=== PATIENT | female | born 1970 | race Caucasian/White ===

== ENCOUNTER 2020-08-27 08:44 | Day surgery (SDC) | payer OTHER ==
[2020-08-27 09:20] LABS: #Lymphocytes 0.8 thou/uL (1.20-3.40); #Monocytes 0.9 thou/uL (0.11-0.59); #Neutrophils 14.3 thou/uL (1.40-6.50); %Lymphocytes 4.7 % (21.0-51.0); %Monocytes 5.4 % (0.0-10.0); %Neutrophils 89.8 % (42.0-75.0); Hemoglobin 14.4 g/dL (12.0-16.0); Mean Corpuscular HGB CONC 33.8 g/dL (32.0-36.0); Mean Corpuscular Hemoglobin 31.4 pg (27.0-31.0); Mean Platelet Volume 7.9 fL (7.4-10.4); Platelet Count 204 thou/uL (130-400); RBC Distribution Width 11.4 % (11.5-14.5)
[2020-08-27 09:37] LABS: Anion Gap 11 mmol/L (10-20); BUN (Urea Nitrogen) 12 mg/dL (7.0-18.7); Calc. Creatinine Clearance 0 mL/min (70-130); Calcium 9.3 mg/dL (7.8-10.44); Carbon Dioxide 26 mmol/L (22-29); Chloride 101 mmol/L (98-107); Glucose 134 mg/dL (70-105); Potassium 3.7 mmol/L (3.5-5.1); Sodium 134 mmol/L (136-145)
[2020-08-27] MEDS ORDERED: Morphine 4 MG/ML VIAL ONE ×2 (10:14→13:30)
[2020-08-27] MEDS ORDERED: Ondansetron PF 4 MG/2 ML Vial ONE ×3 (10:14→14:53)
[2020-08-27 10:15] LABS: Bacteria/HPF None Seen HPF (None Seen); Bilirubin Negative (Negative); Blood, Urine 1+ (Negative); Clarity Clear (Clear); Glucose, Urine (Dipstick) Normal (Negative); Ketone, Urine 10 mg/dL (Negative); Leukocyte 25 Leu/uL (Negative); Nitrite Negative (Negative); Pregnancy Test - Urine (BHCG) Negative (Negative); Pregu Control Background? CLEAR/WHITE (CLR/WHITE); Pregu Control Bar Appear? YES (CONTROL BAR); Protein, Urine (Dipstick) Negative (Neg-Trace); RBC/HPF 0-3 HPF (0-3); Specific Gravity 1.024 (1.002-1.036); Specific Gravity, Urine 1.024 (1.002-1.036); Squamous Epithelial 0-3 HPF (0-3); Urobilinogen Normal mg/dL (Less than 2); WBC/HPF 0-3 HPF (0-3); pH, Urine 5.5 (5.0-9.0)
[2020-08-27] MEDS ORDERED: Piperacillin/Tazobactam 3.375 GM VIAL ONE (11:33)
[2020-08-27] MEDS ORDERED: Iopamidol-370 76% 500 ML 1 ML ONE (11:49)
[2020-08-27] MEDS ORDERED: Bupivacaine 0.25% HCL 30 ML VIAL ONE (14:26)
[2020-08-27] MEDS ORDERED: Lidocaine 1% w/Epinephrine 1:100K 20 ML VIAL ONE (14:26)
[2020-08-27] MEDS ORDERED: Fentanyl 100 MCG/2 ML VIAL ONE (14:38)
[2020-08-27] MEDS ORDERED: Famotidine/PF 20 mg/2ml Vial ONE (14:38)
[2020-08-27] MEDS ORDERED: PROPOFOL 200 MG/20 ML VIAL ONE (14:53)
[2020-08-27] MEDS ORDERED: diphenhydrAMINE 50 MG/ML VIAL ONE (14:53)
[2020-08-27] MEDS ORDERED: Lidocaine 1% PF 5 ML VIAL ONE (14:53)
[2020-08-27] MEDS ORDERED: Glycopyrrolate 0.2 MG/ML 5 ML SYRINGE ONE (14:53)
[2020-08-27] MEDS ORDERED: Succinylcholine 200 MG/10 ml SYRINGE FS ONE (14:53)
[2020-08-27] MEDS ORDERED: Dexamethasone 20 MG/5 ML VIAL ONE (14:53)
[2020-08-27] MEDS ORDERED: Rocuronium Bromide 10 MG/ML (10ML VIAL) ONE (14:53)
[2020-08-27] MEDS ORDERED: PHENYLEPHRINE-NS 100 MCG/ML 10 ML SYRINGE ONE (14:53)
[2020-08-27] MEDS ORDERED: Ketorolac Tromethamine 30 MG/ML VIAL ONE (14:53)
[2020-08-27] MEDS ORDERED: Promethazine HCl 25 MG/ML VIAL SLOW IVP PRN (16:20)
[2020-08-27] MEDS ORDERED: Ondansetron HCl/PF 4 MG/2 ML Vial IVP PRN (16:20)
[2020-08-27] MEDS ORDERED: Promethazine HCl 25 MG/ML VIAL IM PRN (16:20)
[2020-08-27] MEDS ORDERED: Metoclopramide HCl 10 MG/2 ML VIAL ONE ×5 (16:38→16:39)
== END 2020-08-27 18:20 | disposition home or self-care (01) ==
LOC: ERS 08:44 → SDC 14:17
PROVIDERS: ATTEND Surgery
PROC: 0DTJ4ZZ Resection of Appendix, Percutaneous Endoscopic Approach (ICD-10-PCS; principal; 2020-08-27)
DX: K35.80 Unspecified acute appendicitis (principal); K38.1 Appendicular concretions
CPT/HCPCS: 36415; 74177; 80048; 81003; 81015; 81025; 85025; 88304; 96365; 96374; 96375; J1100; J1200; J1885; J2270; J2405; J2543; J2704; J2765; J3010; Q9967; S0020; S0028